=== PATIENT | male | born 1940 | race Caucasian/White ===

== ENCOUNTER 2017-06-14 12:19 | Inpatient (IN) | payer MEDICARE ==
[~2017-06-14] VITALS: Ht 180.3 cm; Wt 65.3 kg
--- NOTE | 2017-06-14 17:00 | NUR ---
PATIENT ARRIVES TO CCU AT 1615 ON STRETCHER FROM ER. PT IS DROWSY, BUT SOMEWHAT AROUSEABLE UPON ADMISSION. PT HELPED OVER TO CCU BED X 3 PERSON ASSIST. PT IS VERY MALNOURISHED APPEARING, AND BED WEIGHS HIM AT 133 LBS. PT IS DAILY ETOH USER. PT ABLE TO STATE THAT HIS LAST DRINK WAS YESTERDAY MORNING HE THOUGHT. PT RECEIVED 1 MG IV ATIVAN IN ER AND HAS SINCE BEEN RESTING WELL. PT HAS HAD REPORTED HALLUCINATIONS THAT HAVE BEEN ONGOING FOR THE LAST 3 WEEKS OR SO. PATIENT HAS HAD INCREASED FALLS AT HOME. VERY LARGE BRUISE NOTED TO PT'S LEFT SHOULDER. PT HAS DARK REDENNED AREA ON COCCYX WITH SOME PARTS NON-BLANCHABLE. IV IN LEFT AC PATENT. IVF WITH 40 MEQ KCL STARTED AT 250 ML/HR X 1 BAG. PT TO RECEIVE IV MAG REPLACEMENT, WELL THIAMINE REPLACEMENT. WINSTON CATHETER INSERTED 16 FR UROMETER. PT HAD A NARROW OPENING TO MEATUS BUT WAS ABLE TO ADVANCE CATHETER IN. NEW IV STARTED IN RIGHT FOREARM 20 G AND PT TOLERATED WELL. PT INCORRECTLY STATES THE YEAR, BUT DOES KNOW HE IS IN THE HOSPITAL, AND ACCURATELY STATES WHO THE PRESIDENT IS. PT ALSO STATES HE IS IN THE HOSPITAL BECAUSE OF THE "TROUBLES I'VE BEEN HAVING AT HOME LATELY WITH WEAKNESS." URINE SENT FOR UA. PT IN CLOSE ROOM NEXT TO NURSES'S STATION AND BED ALARM ON FOR SAFETY. CONTINUE TO MONITOR CLOSELY.
--- NOTE | 2017-06-14 17:51 | NUR ---
BLOOD PRESSURE READING LOW AT 80/53 (59) ON MONITOR. MANUAL BP TAKEN AND FOUND TO BE 102/62 AND 100/64. WILL CONTINUE TO MONITOR CLOSELY.
--- NOTE | 2017-06-14 18:33 | EKG ---
[facility] [address] [facility] [place] [address] Signed Sinus rhythm with occasional premature ventricular complexes Low voltage QRS Nonspecific ST and T wave abnormality Abnormal ECG No previous ECGs available Confirmed by HAKEEM RUELAS MD ([id number]) on 06/14/2017 6:33:27 PM Electronically Signed By: HAKEEM RUELAS MD 06/14/17 1833 PATIENT NAME: MEGAN FORREST Electrocardiogram DATE OF : 42 PHYSICIAN: HAKEEM RUELAS MD REPORT #: [id number] REPORT IS CONFIDENTIAL AND NOT TO BE RELEASED WITHOUT AUTHORIZATION
--- NOTE | 2017-06-14 19:20 | NUR ---
SHIFT REPORT RECEIVED FROM IVON BERGERON. PT IS CURENTLY RESTING. RA. WINSTON PATENT, CONCENTRATED URINE DRAINING FREELY. IVF INFUSING WNL. WILL CONTINUE TO MONITOR.
--- NOTE | 2017-06-14 20:30 | NUR ---
ASSESSMENT COMPLETED. PT SLEEPING, AWOKE EASILY WHEN SPOKEN TO, REMAINS DROWSY. FORGETFUL OF SURROUNDINGS, OTHERWISE IS ORIENTED. DENIES PAIN AND NAUSEA. LUNGS CLEAR, RA. HR REGULAR. BOWEL TONES ACTIVE. WINSTON PATENT, DRAINING CONCENTRATED URINE. IV PATENT, INFUSING WNL. PUPILS APPEAR SLIGHTLY SLUGGISH, BUT ARE ROUND AND REACTIVE TO LIGHT. NO APPARENT TREMORS OR HALLUCINATIONS, NOT AGITATED AT THIS TIME. SKIN APPEARS GROSSLY INTACT, BRUISE NOTED TO LEFT SHOULDER AND COCCYX APPEARS RED AND IS NON-BLANCHABLE. PT DENIES NEEDS AT THIS TIME, WILL ALLOW FOR REST AND CONTINUE TO MONITOR.
--- NOTE | 2017-06-14 21:52 | NUR ---
PT SLEEPING AT THIS TIME, NO APPARENT DISTRESS. RESPIRATIONS ARE EVEN AND UNLABORED, RR:16, SPO2: 100% ON RA. HR:66. WINSTON REMAINS PATENT, IVF INFUSING WNL. WILL CONTINUE TO MONITOR.
--- NOTE | 2017-06-15 00:32 | NUR ---
ASSESSMENT COMPLETED. PT SLEEPING, NO APPARENT DISTRESS. LUNGS CLEAR, RA. RESPIRATIONS EVEN AND UNLABORED, RR:15, SPO2:100%. HR:72. IVF INFUSING WNL. UO HAS BEEN LOW, CALLED DR. RUELAS AND RECEIVED ORDER FOR 1 TIME BOLUS OF 1L LR OVER 2 HOURS. WILL ALLOW FOR REST AND CONTINUE TO MONITOR.
--- NOTE | 2017-06-15 01:47 | NUR ---
PT SLEEPING, NO APPAENT DISTRESS. RESPIRATIONS EVEN AND UNLABORED, RR:15, SPO2: 100%. HR:71. IVF INFUSING WNL. WINSTON PATENT. WILL ALLOW FOR REST AND CONINUE TO MONITOR.
--- NOTE | 2017-06-15 03:23 | NUR ---
PT HEARD CALLING OUT "WHAT ARE YOU DOING?" WENT IN TO CHECK ON PT WHO IS AWAKE AND MORE ALERT. RE-ORIENTED PT TO SURROUNDINGS AND THE TIME. PT ASKS HOW LONG HE'LL BE HERE AND ASKS WHAT WE'RE DOING FOR HIM. REMINDED HIM THAT HE HAS BEEN PRETTY WEAK AND WAS DEHYDRATED AND EXPLAINED THAT WE ARE WORKING TO CORRECT THAT. PT ASKS IF HIS HAS BEEN HERE, INFORMED HIM THAT SHE CALLED AT THE START OF SHIFT TO LET HIM KNOW THAT SHE WAS HOME AND THE CATS WERE FED. THIS MADE PT HAPPY. HE DENIES NEEDS AT THIS TIME, WILL CONTINUE TO MONITOR.
--- NOTE | 2017-06-15 04:03 | NUR ---
PT SLEEPING, NO APPARENT DISTRESS. RESPIRATIONS EVEN AND UNLABORED, RR:15, SPO2:100% ON RA. HR:74. WINSTON PATENT. IVF INFUSING WNL. WILL CONTINUE TO MONITOR.
--- NOTE | 2017-06-15 04:24 | NUR ---
CALLED DR. RUELAS TO REPORT THAT PT'S URINE OUTPUT DID NOT REALLY IMPROVE SINCE BOLUS WAS GIVEN. 75ML OUT IN LAST 4 HOURS. NEW ORDERS RECEIVED: START MAINTANENCE FLUIDS OF LR @125ML/HR TO RUN CONCURENTLY WITH D5 1/2NS +40K. LR STATED IN SECOND IV SITE. WILL CONTINUE TO MONITOR.
--- NOTE | 2017-06-15 08:03 | NUR ---
PT ROUSED SLIGHTLY, REORIENTED EASILY TO PLACE, PT ASKED ABOUT HIS , INFORMED THAT HIS HAS CALLED AND STATED THAT SHE WILL BE UP TO VISIT HIM TODAY. PT AGREABLE TO THAT. VITALS WNL AT THIS TIME.
--- NOTE | 2017-06-15 08:15 | NUR ---
MEDICAL STUDENT IN TO ASSESS PT.
--- NOTE | 2017-06-15 08:32 | NUR ---
IV SITES INTACT, NO REDNESS OR SWELLING NOTED, PT DENIES PAIN AT EITHER SITE. FLUIDS INFUSING EASILY.
--- NOTE | 2017-06-15 09:30 | NUR ---
PT ABLE TO BRUSH OWN TEETH WITH ASSISTANCE FROM NURSE AND PACKAGE LINE RELIEF OPERATOR, ALSO ABLE TO WASH FACE WITH A WASH CLOTH. PT HANDS SOAKED IN WARM SOAPY WATER, CLEANED BLACK AND BROWN SUBSTANCE FROM UNDER FINGER NAILS. PT GOWN CHANGED. PT C/O SLIGHT CHRONIC BACK PAIN, AND GENERALIZED ACHES AND PAINS. DENIES NAUSEA. VITALS WNL AT THIS TIME.
--- NOTE | 2017-06-15 10:56 | NUR ---
PT HALLUCINATING. STATES "DO YOU SEE THOSE PEOPLE THAT ARE STANDING ALL AROUND THE ROOM?" AND "THESE CORDS KEEP COMING OVER THE TOP OF ME, I THINK THEY MIGHT COVER ME UP COMPLETLY". PT STATES "IT'S KIND OF SCARY". 1 MG ATIVAN GIVEN FOR ANXIETY AND HALLUCINATION. PT ABLE TO TAKE PO POTASSIUM AND THIAMIN TABS WITH ENSURE.
--- NOTE | 2017-06-15 11:46 | NUR ---
PT AT BEDSIDE TO SEE PT. PT SLEEPING AT THIS TIME. STATES "WELL, I GUESS I WON'T STAY IF HE'S SLEEPING". STATES "I'M TRYING TO CLEAN UP HIS ROOM DOWN STAIRS WHILE HE IS HERE."
--- NOTE | 2017-06-15 11:59 | NUR ---
IV SITES INTACT, NO REDNESS OR SWELLING NOTED, FLUIDS INFUSE EASILY. PT VITALS WNL AT THIS TIME. PT SLEEPING SOUNDLY, URINE OUTPUT REMAINS ON THE LOW SIDE, IS AWARE.
--- NOTE | 2017-06-15 12:45 | NUR ---
PT SLEEPING SOUNDLY AT THIS TIME. VITALS WNL.
--- NOTE | 2017-06-15 15:20 | NUR ---
PHYSICAL THERAPY IN WORKING WITH PT. STANDING AT THE BEDSIDE, WITH WALKER AND TWO PERSON STANDBY ASSIST. PT UNABLE TO AMBULATED AROUND BED.
--- NOTE | 2017-06-15 15:40 | NUR ---
WINSTON CATH CARE DONE, BED BATH DONE. MOISTURIZER APPLIED TO LOW LEGS. PT AGREEABLE TO DRINKING ENSURE. DIALED PHONE FOR PT SO THAT HE COULD TALK WITH HIS . PT VISITING WITH VIA PHONE. VITALS WNL AT THIS TIME.
--- NOTE | 2017-06-15 15:48 | NUR ---
IV SITE IN LEFT AC DC'D DUE TO BEING PULLED. TIP OF CATH INTACT, NO REDNESS OR SWELLING NOTED. PT LALO WELL. IV SITE IN RT FOREARM IS INTACT, NO REDNESS OR SWELLING, FLUIDS INFUSING EASILY.
--- NOTE | 2017-06-15 17:15 | NUR ---
PT SITTING UP IN BED EATING DINNER, SOME ASSISTANCE REQUIRED PT HAS POOR VISION, AND COORDINATION. PT IS ALERT AND ORIENTED TO SELF, PLACE, AND TIME. PT ATTEMPTING TO FEED SELF MUCH POSSIBLE, APPERS TO HAVE A DIFFICULT TIME ACCEPTING ASSISTANCE.
--- NOTE | 2017-06-15 18:21 | NUR ---
occupational therapy in room with pt at this time.
--- NOTE | 2017-06-15 18:29 | NUR ---
PT ABLE TO MOVE TO THE SIDE OF THE BED WITHOUT ASSISTANCE, OCCUPATIONAL THERAPY ENCOURAGING AND COACHING PT.
--- NOTE | 2017-06-15 18:57 | NUR ---
PT RESTING IN BED AFTER DINNER AND VISIT WITH OCCUPATIONAL THERAPY. STRUGGLED EATING INDEPENDENTLY DUE TO EYE SIGHT. REPORTED SEEING PEOPLE ALL OVER HIS ROOM AND STARS AND LICENSE PLATES IN HIS DINNER. REPORTED THAT HALLUCINATIONS WERE NOT MAKING HIM NERVOUS OR ANXIOUS.
--- NOTE | 2017-06-15 18:57 | NUR ---
PT BOOSTED UP IN BED, ASSISTED TO CALL HIS , CALL LIGHT WITHIN REACH.
--- NOTE | 2017-06-15 19:45 | NUR ---
RECEIVED REPORT AT 1900. AT 1930, PT WAS TRYING TO GET OUT OF BED AND HAD VISUAL HALLUCINATIONS THINKING THAT THERE WAS A STEEP CHRISTIN BY HIS BED. PT WAS VERY SCARED STATED BY HIM, AND TRIED TO GET OUT OF BED. PT IS ALSO SEEING RACE HORSES RUNNING IN A GORGE AND A MAIL MAN WITH THEM. PT HAS MILD TREMORS ON HANDS THAT CAN BE FELT ONLY. CIWA SCORE AT 1930 WAS 17. 1MG OF ATIVAN WAS GIVEN.
--- NOTE | 2017-06-15 20:36 | NUR ---
AT THIS TIME PT APPEARS TO BE SLEEPING. PT HOWEVER IS TALKING IN HIS SLEEP IT SEEMS. NO NEW CONCERNS AT THIS TIME.
--- NOTE | 2017-06-15 21:34 | NUR ---
PT IS STILL SLEEPING AT THIS TIME. SBP IS >100 SO FAR. URINE OUTPUT IS STILL LOW. WILL CONTINUE TO MONITOR.
--- NOTE | 2017-06-15 21:45 | NUR ---
PT JUST WOKE UP. PT IS STILL VERY CONFUSED AND TALKING ABOUT ALL KINDS OF THINGS THAT DO NOT MAKE SENSE. PT HOWEVER AT THIS TIME SEEMS NOT TO HAVE ANY VISUAL HALLUCIANATIONS AND PT DOES NOT SEEMS TO BE WORRIED OR SCARRED AT THIS TIME.
--- NOTE | 2017-06-15 23:03 | NUR ---
PT IS STILL AWAKE AND COOPERATIVE. PT DOES NOT MENTION ANY VISUAL HALLUCINATIONS AT THIS TIME AND SEEMS CALM OVERALL. URINE OUTPUT BETWEEN [id number] WAS 173ML, URINE IS CLEAR AT THIS TIME. V/S ARE WDL.
--- NOTE | 2017-06-16 00:20 | NUR ---
ASSISTED PT TO BS, PT HAD THE URGE FOR A BM. HE WAS UNABLE TO DO SO. PT NOW IS SITTING ON A BED TAN. PT IS VERY WEAK. URINE OUTPUT FROM [id number] WAS 350ML, CLEAR YELLOW. PT HAD A SOFT BM X1. FOAM DRESSING X2 WERE APPLIED ON BUTTOCKS. PT IS ORIENTED TO SELF, WEEKDAY, MONTH, PRESIDENT AND . ALL LOBES ARE CLEAR, STRENGTH IS +4, PULSES +2 NO PERIPHERAL EDEMA NOTED.
--- NOTE | 2017-06-16 00:53 | NUR ---
CIWA SCORE AT THIS TIME IS A 5.
--- NOTE | 2017-06-16 02:00 | NUR ---
PT IS STILL AWAKE. PT HAS OCCASIONAL HALLUCINATIONS BUT THEY DO NOT SCARE HIM AT THIS TIME. V/S ARE WDL, URINE OUTPUT IS STILL ADEQUATE.
--- NOTE | 2017-06-16 04:35 | NUR ---
PT IS INCREASLINGLY RESTLESS, TRYING TO PULL OUT HIS WINSTON, AND CLIMBING OUT OF BED. CIWA IS A 10 AT THIS TIME, 1MG OF ATIVAN IV TO BE GIVEN.
--- NOTE | 2017-06-16 04:49 | NUR ---
PT AT THIS TIME IS BECOMING A 1:1 PT.
--- NOTE | 2017-06-16 06:04 | NUR ---
AT 1930 PT RECEIVED 1MG OF ATIVAN DUE TO A CIWA SCORE OF 17. PT HAD VISUAL HALLUCINATIONS THAT FRIGHTEND HIM VERY MUCH. PT SETTLED BUT DID NOT SLEEP AFTER THAT. URINE OUTPUT AT FIRST WAS INADEQUATE (<30ML/HR), MD RUELAS IS AWARE. AFTER 2300 URINE OUTPUT STARTED TO CREATIVE PROJECT MANAGER AND IS ADEQUATE SINCE THEN. PT STAYED UP ALL NIGHT OVERALL. PT NEEDED ANOTHER DOSE OF 1MG OF ATIVAN AT 0430 DUE TO A CIWA SCORE OF 10. PT HAD HALLUCINATIONS AND WAS VERY RESTLESS AND AGITATED. PT TRIED TO CLIMB OUT OF BED SEVERAL TIMES. PT ALSO TRIED TO PULL OUT HIS WINSTON SEVERAL TIMES. SINCE THEN, PT HAS BEEN A 1:1. V/S OVERALL ARE WDL, PT IS AFEBRILE. PT WAS ORIENTED TO PLACE, DATE, AND WAS ABLE TO DO SERIAL ADDITION WITH THE LAST ASSESSMENT AT 0400. PT AT THIS TIME WOULD LIKE TO LEAVE AND GO HOME. PT AT TIMES STILL TRIES TO PULL OUT HIS WINSTON. PT ALSO HAD A BM. PT NEEDED TO USE THE BED TAN BECAUSE HE IS TOO WEAK TO STAND UP. MD RUELAS TO BE CALLED ABOUT PT STATUS BEFORE SHIFT CHANGE.
--- NOTE | 2017-06-16 06:28 | NUR ---
CIWA SCORE AT THIST TIME IS AN 8. 1MG OF ATIVAN GIVEN.
--- NOTE | 2017-06-16 08:36 | NUR ---
IV SITE INTACT, NO REDNESS OR SWELLING NOTED, FLUIDS INFUSING EASILY. SITE DRESSED IN COBAN TO PROTECT LINE FROM PT PICKING AND PULLING AT. PT HALLUCINATING VISUALY, PICKING IN THE AIR AT THINGS THAT ARE NOT THERE. PT TALKS ABOUT HIS VISUAL HALLUCINATIONS CONSTANTLY, UNABLE TO REORIENT PT TO PLACE, EVENT, OR SURROUNDINGS. PT ORIENTED TO SELF. PT DENIES PAIN, NAUSEA, AND SOB AT THIS TIME.
--- NOTE | 2017-06-16 09:55 | NUR ---
0800: STUDENT NURSE HEAD TO TOE ASSESSMENT. BREAKFAST WAS DELIVERED DURING ASSESSMENT. MULTIPLE ASSIST ON ON FEEDING, WIPING PT DOWN, EMPTYING CATHETER. RN PULLED THIMAINE AND PT TOOK AFTER BREAKFAST. PT DENIED ANY PAIN AND NAUSEA. TWO WARM BLANKETS WERE PUT ON PT. PT STATED DIDNT NEED ANYTHING AT THIS TIME.
--- NOTE | 2017-06-16 10:05 | NUR ---
PT STILL HAVING ACTIVE HALLUCINATIONS AT THIS TIME. MULTIPLE ASSIST ON ADMINISTERING ATIVAN (0.5ML) AND CONTINUOUS LRS. ALCOHOL WITHDRAWL ASSESSMENT DONE AFTER ADMINISTERATION OF ATIVAN. PT QUIET AT THIS TIME NOT NEEDING ANYTHING.
--- NOTE | 2017-06-16 10:38 | NUR ---
PT SLEEPING SOUNDLY AT THIS TIME, RESP RATE EVEN AND UNLABORED, HR IN 60'S.
--- NOTE | 2017-06-16 12:03 | NUR ---
RN AND SN CHECKED PTS VITALS. PT WAS SLEEPING DURING THIS TIME. URINARY ASSESSEMENT WAS PERFORMED. 225 MLS OF YELLOW URINE WAS EMPTIED FROM WINSTON. BILATERAL DORSALIS PEDIS AND RADIAL PULSES WERE CHECKED. SIDERAILS WERE UP AT THIS TIME AND BED AT LOWEST LEVEL.
--- NOTE | 2017-06-16 12:03 | NUR ---
PT SLEPT THROUGH ASSESSMENT. VITALS WNL AT THIS TIME. IV SITE INTACT, NO REDNESS OR SWELLING NOTED, FLUIDS INFUSING EASILY.
--- NOTE | 2017-06-16 12:59 | NUR ---
RN AND SN GAVE PT PARTIAL BED BATH, ELIANA CARE, CATH CARE, FULL LINEN CHANGE, GOWN CHANGE AND APPLIED ANTIPERSPIRANT. PT TOLERATED WELL, NOT SAYING MUCH. REPOSITIONED PT AND FLOATED ON TWO PILLOWS, ONE UNDER EACH HIP. BED LOWERED AND SIDERAILS UP.
--- NOTE | 2017-06-16 13:00 | NUR ---
PT INCONTINENT OF LOOSE STOOL, ELIANA CARE DONE, SOILED FOAM DRESSINGS REMOVED. FULL LINEN CHANGE DONE, PARTIAL BED BATH COMPLETED, WINSTON CATH CARE DONE, GOWN CHANGED, PT HIPS FLOATED ON TWO PILLOWS.
--- NOTE | 2017-06-16 13:30 | NUR ---
DISCUSSED WITH STAFF THEIR CONCERNS FOR THIS PATIENTS SAFETY IF HE RETURNED HOME. THEY STATE HE HAD BRUISES, AND WAS VERY UNKEPT ON ADMIT. THEY STATE IS INDICATING SHE DOES NOT WANT HIM TO GO TO FACILITY IF NEEDED AT DISCHARGE. STAFF IS CONCERNED HE MIGHT BE AT RISK IF HE WERE TO GO HOME. CALLED KAM BALTAZAR AT [facility], DISCUSSED WITH HER THE CONCERNS. SHE STATES SHE WILL HAVE SOMEONE COME TO SEE PATIENT ON MONDAY. IF HE IS DISCHARGED HOME, THEY WILL DO A HOME CHECK.
--- NOTE | 2017-06-16 14:46 | NUR ---
PT NON-COOPERATIVE WITH PHYSICAL THERAPY, REFUSING TO HELP AND FIGHTING AGINST ANY ASSISTANCE TO SIT UP AT THE BEDSIDE. PT VERBALIZES INTENT TO NOT COOPERATE. STATES "I CAN SIT UP IF I WANT, I CAN STAND, HELL, I COULD PROBABLY EVEN RUN IF I WANTED TO, BUT I'M NOT GOING TO." ASSISTED TO GET PT BACK TO BED WITH PILLOW UNDER RT HIP. PT GIVEN 1 MG IV ATIVAN FOR CIWA SCORE OF 18.
--- NOTE | 2017-06-16 14:49 | NUR ---
PT HAS EXTREME DIFFICULTY DRINKING FROM CUP WITH STRAW, ATTEMPTS TO HOLD CUP FOR HIMSELF AND IS NOT COORDINATED ENOUGH TO GET STRAW TO MOUTH. PT RESISTS HELP WITH BRINGING CUP TO MOUTH. CHEWES PILLS RATHER THAN SWALLOWING THEM, THEN WILL TAKE A SIP OF FLUID "I NEED TO GET THIS TASTE OUT OF MY MOUTH". PT UNABLE TO FOLLOW DIRECTION AT THIS TIME.
--- NOTE | 2017-06-16 16:14 | NUR ---
PT CONTIOUES TO SLEEP AT THIS TIME. PT APPEARS TO BE COMFORTABLE AT THIS TIME.
--- NOTE | 2017-06-16 17:08 | NUR ---
PT REMAINS ASLEEP AT THIS TIME, IT IS NOTED THAT HE HAS A FINE TREMOR IN HIS HANDS DUE TO THAT WITH HIS ARMS AND HANDS RESTING ON HIS CHEST THE HEART MONITOR PICKS UP THAT FINE TREMOR IN HIS EKG READING. PT SPO2 REMAINS IN THE HIGH 96% ON ROOM AIR. FOLY DRAINING DILUTE IN COLOR URINE WITH GOOS URINE OUTPUT AT THIS TIME.
--- NOTE | 2017-06-16 17:42 | NUR ---
DINNER ORDER FOR PT AT THIS TIME. PT CONTIOUES TO SPEEL AT THIS TIME. BUT STAFF WILL WAKE PT UP FOR HIS MEAL THIS EVENING.
--- NOTE | 2017-06-16 17:55 | NUR ---
PT AWAKE, SAT PT UP IN BED AT THIS TIME, PT IS TALKING TO PEOPLE OR THING THAT IS NOT IN THE ROOM. PT TOOK TWO OF THE THREE MEDS FOR THIS APARTMENT ASSISTANT MANAGER THIS EVENING. PT REFUSED TO DRINK ENSURE "I WANT THE OTHER STUFF TO DRINK" BUT PT DID NOT SAY WHAT THE OTHER STUFF WAS. AT TIMES HE IS CALLING OUT FOR [place].
--- NOTE | 2017-06-16 18:49 | NUR ---
PT REFUSED TO EAT OR DRINK DINNER TONIGHT. PT WOULD PUSH FOOD AWAY FROM HIS MOUTH WHEN COMPOUNDING TECHNICIAN WOULD OFFER HIM A BITE OR DRINK. TRIED TO TALK ON THE PHONE WITH HIS , BUT HE HUNG UP IN HER. PT CONTIOUES TO TALK WITH SOMEONE THAT IS NOT IN THE ROOM. WHEN TRY TO REDIRECE HIM HE BECOME UPSET WITH COMPOUNDING TECHNICIAN. LOOKS AWAY AND STOPS TALKING.
--- NOTE | 2017-06-16 19:30 | NUR ---
REPORT RECEIVED FROM HIMANSHU DEL VALLE. PT IS IN BED, AWAKE AND STARTING TO PICK AT THE AIR, BED ALARM ON.
--- NOTE | 2017-06-16 20:36 | NUR ---
PT HAS BEEN PICKING AT THE AIR, LOOKING AROUND AND TRYING TO GRAB AT THINGS THAT ARE NOT THERE. ASKED IF HE KNOWS WHERE HE IS, PT STATES "I'M NOT SURE BUT I THINK ITS YELLOWSTONE", ALSO SOME INCOMPEHENSIBLE MUMBLING. HAND TREMORS NOTED. PT ALSO PULLING AT IV TUBING AND O2 SENSOR OFTEN. ASSESSMENT DONE. THIAMINE GIVEN WELL 1MG IV ATIVAN FOR INCREASING RESTLESSNESS AND HALLUCINATIONS. RESTING HR 70'S.
--- NOTE | 2017-06-16 21:17 | NUR ---
PT STILL PULLING AT CATHETER AND IV TUBING, SEEMS TO BE INCREASING IN AGITATION. 1MG IV ATIVAN GIVEN.
--- NOTE | 2017-06-16 21:55 | NUR ---
PT MORE AGITATED, SHAKING AT BED RAILS, SAYING THERE ARE MONSTERS ALL OVER "ITS TIME TO BUST OUT OF HERE". 1MG IV ATIVAN GIVEN.
--- NOTE | 2017-06-17 01:45 | NUR ---
PT HAS BEEN PULLING AT IV TUBING, WINSTON CATHETER AND SENIOR ACCOUNT DIRECTOR, REMOVING LEADS, HAS BEEN GRABBING STAFF'S HANDS AND WRISTS AND SQUEEZING VERY TIGHTLY ALSO DIGGING HIS OWN NAILS INTO STAFF AND SELF, DR RUELAS CALLED AND ORDER GIVEN FOR SOFT RESTRAINTS TO PROTECT LINES AND TUBES WELL STAFF AND PT.
--- NOTE | 2017-06-17 04:58 | NUR ---
PT REMAINED AGITATED UNTIL APPROXIMATELY 0130. REQUIRED PRN ATIVAN PER CIWA PROTOCOL. GRABBING AT STAFF, GRAPPING CORDS AND IV TUBING ABLE. PULLED IV FROM R FA. NEW IV PLACED IN L HAND. PT CURRENTLY RESTING AND MORE CALM.
--- NOTE | 2017-06-17 06:48 | NUR ---
PT HAS BEEN RESTFUL FOR THE PAST COUPLE HOURS.
--- NOTE | 2017-06-17 07:30 | NUR ---
BEDSIDE REPORT RECIEVED. PATIENT IS ASLEEP. NO DISTRESS NOTED.
--- NOTE | 2017-06-17 08:00 | NUR ---
SLEPT THROUGH ASSESSMENT. IV PATENT AT 100 ML/HR. WINSTON CATH WITH CLEAR YELLOW URINE.
--- NOTE | 2017-06-17 09:12 | NUR ---
DR. RUELAS HERE TO SEE PATIENT, ORDERS RECIEVED.
--- NOTE | 2017-06-17 09:48 | NUR ---
REMAINS RESTFUL. KCL HUNG PER ORDERS, WELL MG RIDER.
--- NOTE | 2017-06-17 12:00 | NUR ---
ASSESSMENT UNCHANGED. BATH AND SHAVE GIVEN.
--- NOTE | 2017-06-17 14:11 | NUR ---
pt contioues to appear to be sleeping, spo2 97% on room air.
--- NOTE | 2017-06-17 15:28 | NUR ---
PT CONTIOUES TO SLEEP HAS GOOD URINE OUTPUT, APPEARS TO BE CLEAR DILUTE IN COLOR. PT REMAINS NPO AT THIS TIME.
--- NOTE | 2017-06-17 17:14 | NUR ---
PT TURNED TO HIS LEFT SIDE AT THIS TIME, HE MOANED OUTLOUD WITH TURNING. PT RESTRAINTS REMAIN OFF, BUT HE DOES HAVE MITTENS ON TO KEEP PT FROM PULLING ON TUBES AND MONITOR CORDS. PT CONTIOUES TO APPEAR TO BE COMFORTABLE, DOES NOT OPEN EYES WHEN STAFF TURN HIM. EVEN WITH GOOD ORAL CARE PT HAS VERY BAD BREATH. PT REMAINS NPO AT THIS TIME DUE TO LEVEL OF ACTIVITY, REFUSAL TO TAKE PO INTAKE AND ALERTNESS. PT CONTIOUES TO SPIT AT STAFF WHEN TRYING TO GIVE A DRINK OR FOOD. IV FLUIDS INFUSING AND PT CONTIOUES TO HAVE GOOD URINE OUTPUT VIA WINSTON.
--- NOTE | 2017-06-17 20:07 | NUR ---
WILL OPEN EYES TO COMMAND. THE LONGER AWAKE THE CLEARER HIS SPEECH BECAME. MOANS WITH ANY MOVEMENT AND AFFIRMS IS SORE. DISORIENTED TO PLACE, DATE AND TIME AND EVENT. WAS ABLE TO GET PT TO EAT PARTIAL CONTAINER OF OF PUDDING AND GAVE THIAMINE THIS WAY. REPOSITIONED AND ORAL CARE AND CATH CARE DONE.
--- NOTE | 2017-06-17 21:43 | NUR ---
PT C/O BEING NAUSEATED, GIVEN 4MG ZOFRAN IV. CIWA 9 GIVEN 1MG ATIVAN IV.
--- NOTE | 2017-06-17 21:51 | NUR ---
TURNED TO R SIDE. C/O FEELING LIKE THERE IS JEROD IN EYE, WASHED AND PT STILL SAID THERE ARE LINES IN IT.
--- NOTE | 2017-06-17 23:57 | NUR ---
A LITTLE MORE RESTLESS, WAS LITTLE MORE ORIENTED FOR A WHILE AFTER ATIVAN WAS GIVEN NOW DISORIENTED AGAIN. ATIVAN 1MG IV REPEATED. REPOSITIONED AND GIVEN WATER. LALO WATER WELL.
--- NOTE | 2017-06-18 00:17 | NUR ---
CALLING OUT FOR "FIONA" WHO PT STATES IS HIS MOTHER, ATIVAN 1MG IV REPEATED.
--- NOTE | 2017-06-18 01:05 | NUR ---
CONT RESTLESS GIVEN 1MG ATIVAN IV
--- NOTE | 2017-06-18 02:18 | NUR ---
PATIENT RESTLESS AND TALKING OUT, MEDICATED WITH 1MG IVP ATIVAN
--- NOTE | 2017-06-18 03:52 | NUR ---
CONT TO BE RESTLESS, THOUGHT HE WAS IN A GROCERY STORE. PICKS AT THINGS. REPOSITIONED. GIVEN THIAMINE NOW WHILE AWAKE, PT DID AFIRM THAT HE SLEEPS DURING DAY AND STAYS UP AT NIGHT. GIVEN 1MG ATIVAN IV FOR ETOHW WITHDRAWL. HAVE USED MITTS ON HANDS TO PROTECT IV.
--- NOTE | 2017-06-18 05:47 | NUR ---
IS SLEEPING NOW. HAS TWITCHING OF ARMS EVEN IN SLEEP.
--- NOTE | 2017-06-18 07:45 | NUR ---
PATIENT IS SLEEPING QUIETLY AND I HAVE JUST RECIEVED REPORT FROM DAY SHIFT. LOOKING THROUGH PATIENT'S CHART AND MEDICATION RECORD. WILL BEGIN ASSESSMENT SHORTLY. WINSTON IS DRAINING WELL WITH SUFFICENT AMOUNT OF URINE. VS ARE STABLE.
--- NOTE | 2017-06-18 09:55 | NUR ---
GOT PATIENT UP TO SIT AT THE SIDE OF THE BED FOR A FEW MINUTES, PATIENT DID WELL BUT IS STILL VERY SLEEPY AND DECIDED HE WANTED TO LAY BACK DOWN RATHER THAN GET UP TO THE CHAIR AT THIS TIME. SPOUSE CALLED TO CHECK ON HIM AND SHE IS ON HER WAY INTO SEE HIM.
--- NOTE | 2017-06-18 11:20 | NUR ---
PATIENT'S SPOUSE WAS JUST IN, BUT PATIENT TO SLEEPY TO HOLD A CONVERSATION WITH HER. SHE SAIDD SHE WAS HEADED OME AND TO PLEASE CALL HER WITH ANY CHANGES. THIS I AGREED TO DO.
--- NOTE | 2017-06-18 12:45 | NUR ---
PATIENT SAT UP IN BED AND HAD TO BE FEED, BUT ATE 50% AND DID WELL. HE IS NOW RESTING, EYES CLOSED, RESPIRATIONS EVEN.
--- NOTE | 2017-06-18 13:25 | NUR ---
PT CALLED WANTING TO KNOW IF PT WAS AWKAE? EXPLAINED THAT HE WAS AWAKE ENOUGH TO EAT LUNCH WITH ASSISTANCE AND THEN HE WENT BACK TO SLEEP. WHEN DOES COME TO VISIT SHE STAYS AND 10 TO 20 MINUTES. EXPLAINED THAT SHE COULD COME BACK AND JUST SIT WITH HIM WHILE HE WAS SLEEPING.
--- NOTE | 2017-06-18 16:09 | NUR ---
PATIENT HAS BEEN RESTING MOST OF THE AFTERNOON, EYES CLOSED, RESPIRATIONS EVEN. PATIENT DID TAKE HIS EVENING MEDS WITH A SMALL BOWL OF APPLESAUCE.
--- NOTE | 2017-06-18 18:01 | NUR ---
PATIENT TURNED AGAIN. ON HIS RIGHT SIDE THIS TIME, PATIENT SAYS HE IS NOT HAVING ANY PAIN, JUST TIRED. PATIENT IS WANTING TO EAT.
--- NOTE | 2017-06-18 18:32 | NUR ---
PATIENT WOKE UP A LITTLE SO I CCALLED HIS AND HELD THE PHOONE TO HIS EAR SO THEY COULD TALK A LITTLE AND SAY BARBARA. SAID SHE WILL BE BACK TO SEE HIM IN THE MORNING.
--- NOTE | 2017-06-18 19:59 | NUR ---
IS DROWSY BUT AWAKE. DISORIENTED TO ALL BUT SELF. PT TOOK THIAMINE CRUSHED IN PUDDING, ATE PART OF CONTAINER. IS USUALLY TRYING TO TAKE MITTS OFF. WHEN MITTS OFF TO RETAPE DID WANT TO PULL AT IV TUBING AND UNABLE TO FOLLOW EXPLANATION.HAS CONTINUAL MILD TREMORS. GIVEN 1MG HALDOL IV FOR WITHDRAWL SYMPTOMS. REPOSITIONED. CATH CARE DONE.
--- NOTE | 2017-06-18 21:58 | NUR ---
PT A LITTLE RESTLESS, STATES HE IS JUST TRYING TO ROLL AROUND. REPOSITIONED.
--- NOTE | 2017-06-18 22:34 | NUR ---
HAVE NOTED THAT PT LIKES TO SLEEP WITH HANDS TOGETHER AND THIS IS PROHIBITED TO IV SITE L HAND AND MITTS. MITTS REMOVED AND IV STARTED R ARM. IV SITE L HAND SL FOR NOW.
--- NOTE | 2017-06-18 23:24 | NUR ---
RESTLESS, PICKING AT THE AIR. GIVEN 1MG HALDOL IV. REPOSITIONED TO L SIDE, PT INDICATED THAT HE DIDN'T LIKE LAYING ON THAT SIDE SO PUT ON BACK, HAD BEEN ON RT SIDE.
--- NOTE | 2017-06-19 00:47 | NUR ---
HAS BEEN REACHING OUT FOR THINGS AND PULLING AT COVERS MORE, TALKING MORE TO HALUCINATIONS MORE. UNABLE TO FOLLOW DIRECTIONS. GIVEN 1MG HALDOL IV. HR 95-102 AND BP 146/96.
--- NOTE | 2017-06-19 02:30 | NUR ---
FINALLY FELL ASLEEP ABOUT 0210.
--- NOTE | 2017-06-19 04:15 | NUR ---
WILL AWAKEN FOR SHORT INTERVALS THEN BACK TO SLEEP. BRIEF ASSESSMENT DONE. REPOSITIONED.
--- NOTE | 2017-06-19 05:47 | NUR ---
AWAKE OFF AND ON, WILL OCC CALL OUT. NO CHANGE
--- NOTE | 2017-06-19 06:31 | NUR ---
NO OTHER CHANGES.
--- NOTE | 2017-06-19 08:00 | NUR ---
UP TO CHAIR WITH TOTAL ASSIST. ASKING ABOUT FAMILY. EYES SHUT. WILL ONLY FOLLOW FEW COMMANDS. WINSTON CATH PATENT WITH CLEAR YELLOW URINE NOTED. IVF PATENT. UPON TRANSFER TO CHAIR, HR TO 115BPM.
--- NOTE | 2017-06-19 08:35 | NUR ---
TOOK BREAKFAST POOR.
--- NOTE | 2017-06-19 08:45 | NUR ---
MEDICATIONS GIVEN WITH BREAKFAST.
--- NOTE | 2017-06-19 09:50 | NUR ---
BACK TO BED WITH TOTAL ASSIST.
--- NOTE | 2017-06-19 10:30 | NUR ---
JESSENIA ABDULLAHI TALKED WITH PATIENT .
--- NOTE | 2017-06-19 10:35 | NUR ---
DR. RUELAS HERE NOW TO SEE PATIENT. ORDERS RECIEVED TO DECREASE IVF TO 75 ML/HR, DC WINSTON CATH, DC MONITOR. THESE ORDERS ALL COMPLETE. WILL TRANSFER TO MEDICAL FLOOR TODAY. PATIENT HAS BEEN AWAKE MOST OF DAY. WILL ANSWERE SOME QUESTIONS APPROP.
--- NOTE | 2017-06-19 12:20 | NUR ---
ATE VERY POOR. INC OF URINE, ATTENDS CHANGED. USED URINAL TO VOID 50 ML.
--- NOTE | 2017-06-19 12:30 | NUR ---
TO MED-SURG VIA BED, REPORT GIVEN
--- NOTE | 2017-06-19 12:34 | NUR ---
TO MED-SURG VIA BED.
--- NOTE | 2017-06-19 12:46 | NUR ---
PT TO FLOOR FROM CCU TO ROOM 111 AT 1240, ACCOMPANIED BY RADHA TRIVEDI, VIA BED. PT DROWSY. HAD MEDIUM SOFT BM IN ATTENDS, AND WAS INCONTINENT OF URINE. ALSO VOIDED 50 CC IN URINAL, THEN WAS INCONTINENT OF LARGE AMOUNT OF URINE. PT ANSWERS YES AND NO QUESTIONS. ORIENTED TO SELF.
--- NOTE | 2017-06-19 13:00 | NUR ---
RN WITH PATIENT. RADHA VEGA AND THIS TOWER CLIMBER PROVIDED PERICARE, CLEAN ATTEND AND GOWN, WASHED PATIENTS HANDS AND FACE, ROTATED TO LEFT SIDE, BED RAILS UP, ALARM ON, CALL LIGHT IN REACH. NO OTHER NEEDS AT THIS TIME.
--- NOTE | 2017-06-19 13:08 | NUR ---
PER REPORT FROM SHELLIE CCU RN, 20 G IV TO RFA PLACED 06/18/17.
--- NOTE | 2017-06-19 15:09 | NUR ---
PT IS ASLEEP, RN SUGGESTED I NOT AWAKEN PT TODAY. HAS HAD TROUBLE ADJUSTING TO TRANSFER FROM CCU
--- NOTE | 2017-06-19 15:18 | NUR ---
CLINICALS FAXED TO [facility]. DISCUSSED CASE WITH DAMIEN CROSS TIE TRAM LOADER.
--- NOTE | 2017-06-19 15:23 | NUR ---
PT IN BED, HOB ELEVATED TO 45 DEGREES. GAVE SCHEDULED VITAMIN B-1 IN APPLESAUCE. PT ALSO TOOK ONE DRINK OF ICE WATER. PT REFUSED FURTHER APPLESAUCE OR ICE WATER AT THIS TIME. BED ALARM ON.
--- NOTE | 2017-06-19 15:28 | NUR ---
PHONE CALL WITH PATIENT'S RENY. EXPLAINED THAT PATIENT WAS GETTING READY FOR DISCHARGE IN THE NEXT 2-3 DAYS PER MD D/C ESTIMATE. LET HER KNOW THAT PATIENT "MEGAN" IS GOING TO REQUIRE PT AND OT REHAB AND WILL NEED TO GO TO A SNF FOR THOSES SERVICES SO HE CAN THEN RETURN HOME SAFELY. RENY AGREED TO START THE AUTHORIZATION PROCESS FOR SNF AND WE WILL HAVE A CARE CONFERENCE TOMORROW Monday AT 1130.
--- NOTE | 2017-06-19 15:56 | NUR ---
PT IN BED, HOB ELEVATED. PT TOOK 2 DRINKS OF WATER WITH ASSISTANCE FROM THIS RN. PT REFUSED FURTHER PO FLUIDS. REFUSED SNACK. REORIENTED PT TO SURROUNDINGS, PLACE, EVENTS, DATE. PT CALM, DROWSY. BED ALARM ON.
--- NOTE | 2017-06-19 16:00 | NUR ---
PATIENT RESTING IN BED. SUPERVISOR MACHINE SETTER ASSISTED PATIENT WITH DRINKING A COUPLE SIPS OF WATER. A MAN FROM [facility] IN ROOM TO SEE PATIENT.
--- NOTE | 2017-06-19 16:06 | NUR ---
BOB FROM [facility], ADULT PROTECTIVE SERVICES DEPARTMENT IS IN WITH PT, SITTING AT BEDSIDE. PT'S BED ALARM REMAINS ON. PT CALM, NO S/S DISTRESS OR DISCOMFORT NOTED OR REPORTED. PT STILL APPEARS DROWSY, EYES ONLY OPEN SLIGHTLY AT TIMES, BUT IS RESPONDING TO SIMPLE QUESTIONS.
--- NOTE | 2017-06-19 16:30 | NUR ---
SPOKE WITH BOB BETH FROM [facility] ADULT PROTECTIVE SERVICES. HE SAW PATIENT IN ROOM. STATES PATIENT COULD NOT FOLLOW CONVERSATION. HE STATES IF PATIENT IS DISCHAGED HOME, THEY WILL FOLLOW UP AT HOME. CARD LEFT FOR CHART.
--- NOTE | 2017-06-19 16:40 | NUR ---
HAND OFF REPORT TAKEN FROM IVON MURILLO. THIS RN TO ROOM FOR ASSESSMENT. PT DISORIENTED AND TALKING ABOUT "GOING TO TOWN." PT ORIENTED TO SELF AND FAMILY BUT OTHER DELEON DISORIENTED. PT REORIENTED BY THIS RN. ASSESSMEN DONE. DEPENDS DRY BUT ELIANA PAD WET WITH INCONTENCE. ELIANA PAD CHANGED. IV INFUSING D5 LR AT 75ML/HR. ALL BED RAILS UP. CALL LIGHT WITHIN REACH. PT APPEARS IN NO DISTRESS AT THIS TIME.
--- NOTE | 2017-06-19 17:30 | NUR ---
PATIENT RESTING WITH EYES CLOSED. THIS REFERRAL AGENT AND RADHA VEGA ASSISTED PATIENT WITH CHANGING ATTEND, PERFORMED PERICARE ON PATIENT. PATIENT REQUESTING SHOES TO GO HOME. CALL LIGHT IN REACH. NO OTHER NEEDS AT THIS TIME.
--- NOTE | 2017-06-19 17:49 | NUR ---
Patient had extra large void in attend, assisted patient with changing to clean attend and pericare. Assisted patient with combing hair and washing face and hands. Patient sat up in bed, attempted to assist patient with meal. Patient consumed only 5 percent of meal, refused the rest. patient had no difficulty swallowing. Patients eyes closed for most of care. call light in reach. No other needs at this time.
--- NOTE | 2017-06-19 17:58 | NUR ---
patient taking small sips of Ensure.
--- NOTE | 2017-06-19 18:05 | NUR ---
PT HERE FOR ETOH WITHDRAWL AND MALNUTRITION. PT ORIENTED ONLY TO SELF. PT HAVING HALUCINATIONS AND NEEDS HELP WITH EATING. NO SWALLOWING DIFFICULTIES NOTED THIS SHIFT. ASPIRATION PERCAUTIONS IN PLACE. MEDICATIONS GIVEN GROUND IN PUDDING OR APPLE SAUCE. PIV IN L HAND AND RFA, RFA INFUSING D5LR AT 75 ML/HR. PT Q 2 HR TURNS. PT INCONTENENT TO URINE AND STOOL. DEPENDS AND ELIANA PAD IN PLACE. ADULT PROTECTIVE SERVICES CAME BY TODAY, COMMUNICATING WITH JCARLOS IN CASE MANAGEMENT.
--- NOTE | 2017-06-19 19:20 | NUR ---
RECEIVED REPORT FROM DAY SHIFT RN. PT IN BED. PT GRABBING AT THINGS IN THE AIR AND GIGGLING. ORIENTED TO SELF ONLY. FLUIDS @ 75/HR. HELPED CHANGE POSITIONS IN BED. PT UNABLE TO USE CALL LIGHT, BED ALARM IN PLACE. HEEL PROTECTORS ON.
--- NOTE | 2017-06-19 23:22 | NUR ---
CHANGED PT ATTENDS AND CHUCKS. REPOSITIONED SUPINE. PT DISCONNECTED IV. CLEANED PT UP, CHANGED GOWN. IV STILL PATENT. WARM BLANKET PROVIDED. BED ALARM ON.
--- NOTE | 2017-06-20 00:31 | NUR ---
PT AWAKE IN BED. APPEARS TO BE GRABBING THINGS IN THE AIR. BED ALARM IN PLACE. FREQUENT CHECKS. FLUIDS INFUSING.
--- NOTE | 2017-06-20 03:07 | NUR ---
PT LYING IN BED, EYES CLOSED, TALKING REACHING INTO THE AIR. FLUIDS INFUSIING. FREQUENT CHECKS. HEEL PROTECTORS IN PLACE. BED ALARM ON.
--- NOTE | 2017-06-20 04:32 | NUR ---
ATTENDS CHANGED. BEDDING CHANGED. POSITION CHANGED. BED ALARM IN PLACE. CALL LIGHT WITHIN REACH. FREQUENT CHECKS.
--- NOTE | 2017-06-20 05:19 | NUR ---
HALLUCINATIONS. AWAKE AND ASLEEP ON AND OFF ALL THROUGH THE NIGHT. PT IS BEDBOUND. INCONTINENT OF BOWEL AND BLADDER. CRUSH PILLS IN APPLE SAUCE. NEEDS HELP EATING. REG DIET. ORIENTED TO SELF ONLY. PLAN TO DC TO SNF. IS RENY. TURN Q2H. ASPIRATION PERCAUTIONS IN PLACE. HOB ELEVATED. D5LR INFUSING @ 75ML/HR. ATTENDS AND ELIANA PAD IN PLACE. LOTS OF URINE OUTPUT.
--- NOTE | 2017-06-20 07:49 | NUR ---
PATIENT SITTING STRAIGHT UP IN BED. THIS BILINGUAL SALES CONSULTANT ASSISTED PATIENT WITH BREAKFAST. PATIENT REFUSED DUE TO UPSET STOMACH. PATIENT TOOK A COUPLE OF SIPS OF JUICE. HANDS AND FACE WASHED. ORAL CARE DONE. SIDE RAILS UP. BED ALARM ON.
--- NOTE | 2017-06-20 09:03 | NUR ---
MORNING ASSESSMENT AND MEDICATIONS DUE. PT ASSESSED, PT IN BED AND FOUND TO BE WET. DEPENDS, ELIANA PAD AND CHUX SATURATED. ALL CHANGED. PT WORKING WITH PHYSICAL THERAPIST. MEDICATIONS GIVEN (SEE MAR). PT CONTINUES TO WORK WITH PHYSICAL THERAPY. BED RAILS UP.
--- NOTE | 2017-06-20 10:30 | NUR ---
PATIENT LAYING IN BED ASKING IF I SEE THE COW DOWN THE ROAD AND TALKING ABOUT ALL THE ANIMALS THAT ARE OUT TODAY. THIS GRADING SUPERVISOR ASSISTED WITH A FULL BATH, ELIANA CARE, LOTION APPLIED, SHAVE AND LINENS CHANGED. SIDE RAILS UP BED ALARM ON. CALL BUTTON IN REACH.
--- NOTE | 2017-06-20 10:35 | NUR ---
PATIENT REFUSED BREAKFAST
--- NOTE | 2017-06-20 11:20 | NUR ---
PATIENTS IN ROOM TO SEE PATIENT. THIS PURCHASING ASSISTANT GAVE THE PATIENTS HIS RING IN A CONTAINER TO TAKE HOME WITH HER. PATIENTS STATED THAT SHE WAS GOING TO PUT IT ON THE PATIENTS DRESSER. IVON OJEDA IN ROOM.
--- NOTE | 2017-06-20 11:30 | NUR ---
CARE CONFERENCE ATTENDEES: PATIENT, -RENY STAFF: DR RUELAS, MYSELF CASE MANAGEMENT, RUSTY SHAIKH [facility], [facility]. DR RUELAS WENT OVER THE PT CONDITION, THE STATED UNDERSTANDING AND STARTED TALKING WITH THE PT ABOUT HIM GOING TO REHAB WHEN IT BECOMES AVAILABLE. SHE STATED SHE HAD ALREADY TALKED WITH HIM ABOUT IT AND HE HAD AGREED. HE DID SAY THAT HE DID NOT WANT TO GO TO A LONG TERM, BUT ASSURED HIM IT WOULD BE REHAB FOR A WHILE. SHE DENIED ANY FURTHER QUESTIONS.
--- NOTE | 2017-06-20 11:44 | NUR ---
FOCUSSED ASSESSMENT DUE. PT IN BED VISITING WITH . FEEDING PT. PT ABLE TO EAT MULTIPLE BITES. FOCUSED ASSESSMENT DONE. CARE CONFERENCE IN PROGRESS. PT AGREES TO PLAN OF CARE. AT BEDSIDE FOR SUPPORT. BED RAILS UP. CALL LIGHT WITHIN REACH.
--- NOTE | 2017-06-20 11:49 | NUR ---
MED REC COMPLETE. PATIENT TAKES NO HOME MEDICATIONS.
--- NOTE | 2017-06-20 12:58 | NUR ---
PT RESTING IN BED EYES CLOSED RR EVEN AT 18 BPM. NO DISTRESS NOTED. PT APPEARS TO BE SLEEPING AFTER BEING ASSISTED BY SPOUSE TO EAT LUNCH.
--- NOTE | 2017-06-20 13:47 | NUR ---
THIS RN TO BEDSIDE TO ASSIST TENSION MACHINE OPERATOR WITH TURNING. ELIANA CARE DONE, DIPER CHANGED. ELIANA PAD SATURATED WITH URINE (YELLOW). PT TURNED TO LEFT SIDE. BED RAILS UP. BED ALARM ON. CALL LIGHT WITHIN REACH.
[2017-06-20] MEDS ORDERED: VITAMIN D250000 UNIT PO (13:55)
--- NOTE | 2017-06-20 13:56 | NUR ---
THIS THRESHING OPERATOR AND RN CHANGED PATIENTS ATTENDS. SKIN CARE DONE. PATIENT SITTING UP IN BED. WHILE PATIENT HOLDS HIS MILK AND DRINKING IT PATIENT STATES HE WANTS TO FINISH HIS "BEER". CALL BUTTON IN REACH BED ALARM ON. SIDE RAILS UP. NO OTHER NEEDS AT THIS TIME.
[2017-06-20] MEDS ORDERED: CALCIUM 600 +1 EAC8 PO (13:57)
[2017-06-20] MEDS ORDERED: VITAMIN B-1100 MG PO (13:58)
--- NOTE | 2017-06-20 14:26 | NUR ---
MEDICATION DUE. PT RESTING IN BED, TALKING ABOUT CATS. MEDICATION GIVEN WITH PUDDING. BED RAILS UP, BED ALARM ON. CALL LIGHT WITHIN REACH.
--- NOTE | 2017-06-20 14:45 | NUR ---
PATIENT RESTING IN BED. ICE IN CRYO. FRESH ICE WATER GIVEN. RN IN ROOM TO PASS MEDS. NO OTHER NEEDS AT THIS TIME. CALL BUTTON IN REACH.
--- NOTE | 2017-06-20 15:54 | NUR ---
FAXED ORDERS TO [facility]. RECIEVED CONFIRMATION OF FAX. THEN [facility] CALLED AND STATED THEY ORDERS WERE OK AND THEY WOULD BE COMING TO PICK HIM UP. CALLED AND SPOKE WITH PT RENY ABOUT HIM GOING TO [facility] SHE STATES SHE WILL BE UP THERE EITHER TONIGHT OR TOMORROW TO SEE HIM.
--- NOTE | 2017-06-20 16:07 | NUR ---
BELL YOUNG HERE TO INSOLE AND OUTSOLE SPLITTER PT. PT PREPARED FOR DISCHARGE. PT TRANFERED TO WHEEL CHAIR WITH 2 PERSON ASSIST. PIV'S DC'D WNL. [facility] WHO STATES ALL HER QUESTIONS HAVE BEEN ANSWERED. PT WHEELED FROM [facility] BY BELL YOUNG.
--- NOTE | 2017-06-22 12:52 | NUR ---
FAXED A NEW ORDER TO [facility] PER DR RUELAS REQUEST. 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 ALSO FOR VITAMIN B1 LEVEL IN 3 WEEKS WITH RESULTS TO COVERING PROVIDER. RECIEVED FAX CONFIRMATION.
== END 2017-06-20 15:55 | disposition home or self-care (01) | DRG 896 ==
LOC: ED 12:19 → CCU 15:00 → MS 06-19 12:40
PROVIDERS: ADMIT Internal Medicine
PROC: HZ2ZZZZ Detoxification Services for Substance Abuse Treatment (ICD-10-PCS; principal; 2017-06-14)
DX: F10.231 Alcohol dependence with withdrawal delirium (principal); G93.41 Metabolic encephalopathy; N17.9 Acute kidney failure, unspecified; M62.82 Rhabdomyolysis; E87.6 Hypokalemia; E55.9 Vitamin D deficiency, unspecified; D53.9 Nutritional anemia, unspecified; Z91.81 History of falling; M62.50 Muscle wasting and atrophy, not elsewhere classified, unspecified site; Y90.0 Blood alcohol level of less than 20 mg/100 ml
CPT/HCPCS: 36415; 70450; 71045; 80053; 80069; 81001; 82306; 82550; 82607; 82746; 83605; 83690; 83735; 84100; 84425; 84439; 84443; 84484; 85025; 85610; 85651; 93005; 93010; 97110; 97162; 97166; 97530; G0480; J1630; J2060; J2405; J3411; J3475; J3480; J7030; J7040; J7050; J7120

== ENCOUNTER 2018-07-10 15:18 | Inpatient (IN) | payer MEDICARE ==
[~2018-07-10] VITALS: Ht 180.3 cm; Wt 73.1 kg
--- OUTSIDE RECORDS SUMMARY | ~2018-07-10 | XMS | Clinical Summary ---
Demographics + + + | Address | [address] | | | [place] [address] | + + + | Home Phone | | + + + | Preferred Language | Unknown | + + + | Marital Status | | + + + | Quaker Affiliation | Unknown | + + + | Race | Unknown | + + + | Ethnic Group | Unknown | + + + Author + + + | Author | [facility] | | | and [place] | + + + | Organization | [facility] | | | and [place] | + + + | Address | Unknown | + + + | Phone | Unavailable | + + + Support + + +---------+ + | Name | Relationship | Address | Phone | + + +---------+ + | RENY FORREST ECON | Unknown | | + + +---------+ + Care Team Providers + +------+ + | Care Corporate Compliance Director Name | Role | Phone | + +------+ + PP | Unavailable | + +------+ + Allergies No Known Allergies Medications + + + +---------+------+------+-------+ | Medication | Sig | Dispensed | Refills | Star | End | Statu | | | | | | t | Date | s | | | | | | Date | | | + + + +---------+------+------+-------+ | polyvinyl alcohol | 4 times daily as | | 0 | | | Activ | | (LIQUITEARS) 1.4% | needed for Dry Eyes. | | | | | e | | ophthalmic solution | | | | | | | + + + +---------+------+------+-------+ | trolamine | Apply topically 2 | | 0 | | | Activ | | salicylate | times daily. | | | | | e | | (ASPERCREME) 10% | | | | | | | | cream | | | | | | | + + + +---------+------+------+-------+ | Calcium | Take by mouth 2 | | 0 | | | Activ | | Carb-Cholecalciferol | times daily. | | | | | e | | (CALCIUM 600+D3 PO) | | | | | | | + + + +---------+------+------+-------+ | Menthol (COUGH | every 2 hours as | | 0 | | | Activ | | DROPS) 5 MG LOZG | needed. | | | | | e | + + + +---------+------+------+-------+ | bisacodyl | 10 mg as needed for | | 0 | | | Activ | | (DULCOLAX) 10 mg | Constipation. | | | | | e | | suppository | | | | | | | + + + +---------+------+------+-------+ | ergocalciferol | Take 50,000 Units by | | 0 | | | Activ | | (VITAMIN D-2) 50,000 | mouth Once a week. | | | | | e | | units capsule | | | | | | | + + + +---------+------+------+-------+ | ferrous sulfate | Take 325 mg by mouth | | 0 | | | Activ | | 325 mg tablet | Daily. | | | | | e | + + + +---------+------+------+-------+ | folic acid 1 mg | Take 1 mg by mouth | | 0 | | | Activ | | tablet | Daily. | | | | | e | + + + +---------+------+------+-------+ | guaiFENesin | Take 200 mg by mouth | | 0 | | | Activ | | (ROBITUSSIN) 100 | every 4 hours as | | | | | e | | mg/5 mL SOLN | needed. | | | | | | + + + +---------+------+------+-------+ | ibuprofen (ADVIL, | Take 400 mg by mouth | | 0 | | | Activ | | MOTRIN) 400 mg | 2 times daily. | | | | | e | | tablet | | | | | | | + + + +---------+------+------+-------+ | lactulose 10 g/15 | Take 20 mLs by mouth | | 0 | | | Activ | | mL solution | 3 times daily. | | | | | e | + + + +---------+------+------+-------+ | melatonin 3 mg | Take by mouth | | 0 | | | Activ | | TABS | nightly. | | | | | e | + + + +---------+------+------+-------+ | magnesium | Take by mouth as | | 0 | | | Activ | | hydroxide (MILK OF | needed for | | | | | e | | MAGNESIA) 400 mg/5 | Constipation. | | | | | | | mL suspension | | | | | | | + + + +---------+------+------+-------+ | Multiple | Take 1 tablet by | | 0 | | | Activ | | Vitamins-Minerals | mouth Daily. | | | | | e | | (MULTIVITAMIN & | | | | | | | | MINERAL PO) | | | | | | | + + + +---------+------+------+-------+ | raNITIdine | Take 150 mg by mouth | | 0 | | | Activ | | (ZANTAC) 150 mg | At Bedtime. | | | | | e | | tablet | | | | | | | + + + +---------+------+------+-------+ | docusate-senna | Take 1 tablet by | | 0 | | | Activ | | (SENNA-PLUS) 50-8.6 | mouth 2 times daily. | | | | | e | | mg per tablet | | | | | | | + + + +---------+------+------+-------+ | QUEtiapine | Take 25 mg by mouth | | 0 | | | Activ | | (SEROQUEL) 25 mg | every morning. | | | | | e | | tablet | | | | | | | + + + +---------+------+------+-------+ | QUEtiapine | Take 50 mg by mouth | | 0 | | | Activ | | (SEROQUEL) 50 MG | Daily. | | | | | e | | tablet | | | | | | | + + + +---------+------+------+-------+ | thiamine (VITAMIN | Take 200 mg by mouth | | 0 | | | Activ | | B-1) 100 mg tablet | 3 times daily. | | | | | e | + + + +---------+------+------+-------+ | Cyanocobalamin | Take 1,000 mcg by | | 0 | | | Activ | | (VITAMIN B 12 PO) | mouth Daily. | | | | | e | + + + +---------+------+------+-------+ Active Problems Not on file Family History + +---------+--------+ + | Relation | Name | Status | Comments | + +---------+--------+ + | Grandchild | Jamie | Alive | | | | [place] | | | + +---------+--------+ + Social History + +-------+ +--------+------+ | Tobacco Use | Types | Packs/Day | Years | Date | | | | | Used | | + +-------+ +--------+------+ | Never Assessed | | | | | + +-------+ +--------+------+ + + + | Sex Assigned at | Date Recorded | | | | + + + | Not on file | | + + + + + + + | Job Start Date | Occupation | Industry | + + + + | Not on file | Not on file | Not on file | + + + + + + + + | Travel History | Travel Start | Travel End | + + + + + + | No recent travel history available. | + + Plan of Treatment + + + + + | Health Maintenance | Due Date | Last Done | Comments | + + + + + | Vaccine: | | | | | Dtap/Tdap/Td (1 - | 0 | | | | Tdap) | | | | + + + + + | Vaccine: Zoster (1 | | | | | of 2) | 1 | | | + + + + + | Vaccine: | | | | | Pneumococcal 65+ | 6 | | | | Low/Medium Risk (1 | | | | | of 2 - PCV13) | | | | + + + + + | Vaccine: Influenza | | | | | (Season Ended) | 9 | | | + + + + + Results Not on filefrom Last 3 Months Insurance + +--------+ +--------+-------+---------+--------+ | Payer | Benefi | Subscriber | Effect | Phone | Address | Type | | | t Plan | ID | trinity | | | | | | / | | Dates | | | | | | Group | | | | | | + +--------+ +--------+-------+---------+--------+ | [employer] | [employer] | [id number] | 04/03/19 | | | Medica | | | HEALTH | | 17-Pre | | | re | | | MDCR | | sent | | | | + +--------+ +--------+-------+---------+--------+ + +--------+ +--------+ + + | Guarantor Name | Accoun | Relation to | Date | Phone | Billing Address | | | t Type | Patient | of | | | | | | | | | | + +--------+ +--------+ + + | Sadiq Forrest | Person | Self [birth year] | [address] | | | mike/Adi | | 1940 | [phone] | [place] | | | ramon | | | [address] (Home) | [phone] | + +--------+ +--------+ + + Advance Directives Patient has advance care planning documents on file. For more information, please contact:[facility] [place] [address]"
--- OUTSIDE RECORDS SUMMARY | ~2018-07-10 | XMS | Clinical Summary ---
Demographics + + + | Address | [address] | | | [place] [address] | + + + | Home Phone | | + + + | Preferred Language | Unknown | + + + | Marital Status | | + + + | Protestant Affiliation | Unknown | + + + | Race | Unknown | + + + | Ethnic Group | Unknown | + + + Author + + + | Author | [facility] | | | and [place] | + + + | Organization | [facility] | | | and [place] | [...] Team Providers + +------+ + | Care Testing Shaking Shipping Name | Role | Phone | + [...] | [employer] | [employer] | [id number] | 04/03/19 | | | Medica | [...] | Self | [birth year] | [address] | | | mike/Adi | | 1940 | [phone] | [place] | | | ramon | | | [address] (Home) | [phone] | + +--------+ +--------+ + + Advance Directives Patient has advance care planning documents on file. For more information, please contact:[facility] [place] [address]"
--- OUTSIDE RECORDS SUMMARY | ~2018-07-10 | XMS | Clinical Summary ---
Demographics + + + | Address | [address] | | | [place] [address] | + + + | Home Phone | | + + + | Preferred Language | Unknown | + + + | Marital Status | | + + + | Jehovah'S Witness Affiliation | Unknown | + + + | Race | Unknown | + + + | Ethnic Group | Unknown | + + + Author + + + | Author | [facility] | | | and [place] | + + + | Organization | [facility] | | | and [place] | [...] Team Providers + +------+ + | Care Director Of Food And Beverage Services Name | Role | Phone | + [...] | [employer] | [employer] | [id number] | 04/03/19 | | | Medica | [...] | Self | [birth year] | [address] | | | mike/Adi | | 1940 | [phone] | [place] | | | [place] | | | [address] (Home) | [phone] | + +--------+ +--------+ + + Advance Directives Patient has advance care planning documents on file. For more information, please contact:[facility] [place] [address]"
[~2018-07-10 15:18] MED LIST: CALCIUM 600 +1 EAC8 PO; VITAMIN B-1100 MG PO; VITAMIN D250000 UNIT PO
[2018-07-11] MEDS ORDERED: OMEPRAZOLE20 MG PO (13:51)
[2018-07-11] MEDS ORDERED: SUCRALFATE1 GM PO (13:51)
== END 2018-07-11 15:00 | disposition home or self-care (01) | DRG 897 ==
LOC: ED 15:18 → CCU 19:42
PROVIDERS: ADMIT Internal Medicine
DX: F10.231 Alcohol dependence with withdrawal delirium (principal); E87.2 Acidosis; K20.8 Other esophagitis; K70.9 Alcoholic liver disease, unspecified; G31.84 Mild cognitive impairment of uncertain or unknown etiology; Z87.891 Personal history of nicotine dependence; Z79.1 Long term (current) use of non-steroidal anti-inflammatories (NSAID)
CPT/HCPCS: 36415; 74177; 80053; 81001; 82010; 82550; 83690; 83735; 84100; 84425; 85025; 96361; 99285-25; C9113; G0480; J1650; J2060; J2405; J3411; J3475; J7030; J7120; Q9967